=== PATIENT | male | born 1985 | race Caucasian/White ===

== ENCOUNTER 2019-05-03 21:40 | Emergency (ER) | payer SELFPAY ==
[~2019-05-03] VITALS: Ht 172.7 cm; Wt 102.1 kg
--- NOTE | 2019-05-03 21:52 | NUR ---
Pt called for triage. Pt not in ER waiting room. Will attempt to call again.
[2019-05-03 21:55] VITALS: BP_SYST 137
--- NOTE | 2019-05-03 22:40 | NUR ---
Pt called in x 3, no answer
--- NOTE | 2019-05-03 22:40 | NUR ---
Patient left without being seen. No further treatment provided. ER MD aware
== END 2019-05-03 22:40 | disposition left against medical advice (07) ==
LOC: SED 21:40
DX: M54.2 Cervicalgia (principal); R51 Headache; M25.512 Pain in left shoulder; R07.89 Other chest pain; M79.662 Pain in left lower leg; R11.0 Nausea; Z53.21 Procedure and treatment not carried out due to patient leaving prior to being seen by health care provider; V89.2XXA Person injured in unspecified motor-vehicle accident, traffic, initial encounter; Y93.89 Activity, other specified; Y92.410 Unspecified street and highway as the place of occurrence of the external cause; Y99.8 Other external cause status